=== PATIENT | female | born 1975 | race Caucasian/White ===

== ENCOUNTER 2021-04-23 16:10 | Emergency (ER) | payer OTHER ==
[2021-04-23 16:29] VITALS: BP 124/82; PULSE 67; TEMP 97.6; BMI 28.8
[2021-04-23] MEDS ORDERED: KETOROLAC TROMETHAMINE 30 MG/1 ML VIAL IM ONE (17:01)
[2021-04-23] MEDS ORDERED: CYCLOBENZAPRINE HCL 10 MG TABLET (FP) PO ONE (17:01)
[2021-04-23] MEDS ORDERED: KETOROLAC TROMETHAMINE 30 MG/1 ML VIAL ONE (17:15)
[2021-04-23] MEDS ORDERED: CYCLOBENZAPRINE HCL 10 MG TABLET (FP) ONE (17:15)
[2021-04-23 18:10] LABS: PH,URINE 7.5 (5.0-8.0); URINE APPEARANCE CLEAR; URINE BILIRUBIN NEGATIVE (NEGATIVE); URINE COLOR YELLOW; URINE GLUCOSE (UA) NEGATIVE (NEGATIVE); URINE KETONE NEGATIVE (NEGATIVE); URINE LEUK ESTERASE NEGATIVE (NEGATIVE); URINE NITRITE NEGATIVE (NEGATIVE); URINE PROTEIN NEGATIVE (NEGATIVE); URINE UROBILINOGEN 0.2 mg/dL (0.2-1.0)
[2021-04-23] MEDS ORDERED: LIDOCAINE 5% TOPICAL PATCH TP ONE (18:26)
[2021-04-23] MEDS ORDERED: LIDOCAINE 5% TOPICAL PATCH ONE (18:31)
[2021-04-23] MEDS ORDERED: LIDOCAINE PATCH REMOVAL MC SCH (22:00)
== END 2021-04-23 18:36 | disposition home or self-care (01) ==
LOC: JERFT 16:10
PROC: 3E0233Z Introduction of Anti-inflammatory into Muscle, Percutaneous Approach (ICD-10-PCS; principal; 2021-04-23)
DX: M54.5 Low back pain (principal)
CPT/HCPCS: 81003; 84703; 87086; 99284-25